=== PATIENT | female | born 1995 | race African-American/Black ===

== ENCOUNTER 2017-09-20 18:43 | Emergency (ER) | payer OTHER ==
[2017-09-20 18:49] VITALS: BP 127/71
[2017-09-20] MEDS ORDERED: IBUPROFEN 800 MG TABLET PO ONE (18:58)
[2017-09-20] MEDS ORDERED: METHOCARBAMOL 500 MG TABLET PO ONE (18:58)
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
== END 2017-09-20 19:08 | disposition home or self-care (01) ==
LOC: ER 18:43
DX: S16.1XXA Strain of muscle, fascia and tendon at neck level, initial encounter (principal); M54.2 Cervicalgia; X58.XXXA Exposure to other specified factors, initial encounter; Y93.75 Activity, martial arts
CPT/HCPCS: 99283

== ENCOUNTER 2018-04-15 23:08 | Emergency (ER) | payer OTHER ==
[2018-04-15 23:25] VITALS: BP 131/80
[2018-04-15] MEDS ORDERED: KETOROLAC TROMETHAMINE INJ/PF 30 MG/1 ML SDV IM ONE (23:37)
--- NOTE | 2018-04-15 23:41 | ER Document Report ---
ED General - General Chief Complaint: Shoulder Pain Stated Complaint: SHOULDER PAIN Time Seen by Provider: 04/15/18 23:28 Notes: Patient is a pleasant 22-year-old female presents with complaint of left shoulder pain. Says started when she woke up from sleep. She says she cannot move her left shoulder. She is very painful in the anterior superior aspect of her shoulder. Sometimes pain shoots down her arm. Never had anything like this before. No trauma. No pain before she went to bed. No history of dislocation. No weakness or numbness into the left hand. TRAVEL OUTSIDE OF THE [place] IN LAST 30 DAYS: No - Related Data Allergies/Adverse Reactions: No Known Allergies Allergy (Unverified 09/20/17 18:43) Past Medical History - Social History Smoking Status: Unknown if Ever Smoked Frequency of alcohol use: None Drug Abuse: None Family History: Reviewed & Not Pertinent Patient has suicidal ideation: No Patient has homicidal ideation: No Renal/ Medical History: Denies: Hx Peritoneal Dialysis Review of Systems - Review of Systems Notes: My Normal Review Basic REVIEW OF SYSTEMS: CONSTITUTIONAL : Denies fever, chills, or sweats. Denies recent illness. MUSCULOSKELETAL: Left shoulder pain SKIN: Denies rash or skin lesions. NEUROLOGICAL: Denies sensory or motor loss. ALL OTHER SYSTEMS REVIEWED AND NEGATIVE. Physical Exam - Vital signs Vitals: Temp Pulse Resp BP Pulse Ox 98.8 F 73 20 131/80 H 99 04/15/18 23:23 04/15/18 23:23 04/15/18 23:23 04/15/18 23:23 04/15/18 23:23 - Notes Notes: General Appearance: Well nourished, alert, cooperative, no acute distress, mild obvious discomfort. Vitals: reviewed, See vital signs table. Head: no swelling or tenderness to the head Eyes: PERRL, EOMI, Conjuctiva clear Extremities: Good strength in the left hand. Good distal sensation in all fingers of the left hand. Patient has severe pain with internal rotation of the shoulder. She has some pain with external rotation. She has a lot of pain to palpation over the chromic clavicular joint and the anterior superior aspects of the left shoulder. No pain to palpation of the posterior aspect of the shoulder. Radial and ulnar pulses are intact. Skin: warm, dry, appropriate color, no rash Neuro: speech clear, oriented x 3, normal affect, responds appropriately to questions. Course - Re-evaluation Re-evalutation: 04/16/18 00:14 Based on patient's presentation and physical exam I suspect she probably has impingement syndrome of her left shoulder. I will have her use cold packs to her shoulder as well as take ibuprofen. I informed her to avoid laying on her left shoulder and to avoid activities where she is raising her arms above her head for prolonged periods of time. I encouraged her follow-up with orthopedist doctor for reevaluation. Patient agrees with plan will be discharged home. Dictation of this chart was performed using voice recognition software; therefore, there may be some unintended grammatical errors. - Vital Signs Vital signs: Temp Pulse Resp BP Pulse Ox 98.8 F 73 20 131/80 H 99 04/15/18 23:23 04/15/18 23:23 04/15/18 23:23 04/15/18 23:23 04/15/18 23:23 Discharge - Discharge Clinical Impression: Shoulder pain, left Qualifiers: Chronicity: acute Qualified Code(s): M25.512 - Pain in left shoulder Condition: Good Disposition: HOME, SELF-CARE Additional Instructions: Based on your exam and history I suspect you have impingement syndrome of your shoulder. Please avoid exercises where you lift your arms above your head and avoid laying on your right shoulder. Please take Ibuprofen 4oomg every 6 hours for pain. Take it with food. please call Dr. Yusuf's office (orthopedic physician) for a follow up appointment this week. Please return to the ER if you have worsening pain or weakness or numbness into your hand, or if you have further concerns. Forms: Return to Work Referrals: GERARDO YUSUF MD [ACTIVE STAFF] - 04/16/18 (call office monday morning to make a follow up appointment.)
--- NOTE | 2018-04-16 00:10 | RADIOLOGY REPORT (SQ) ---
EXAM DESCRIPTION: XR SHOULDER 2 OR MORE VIEWS COMPLETED DATE/TME: 04/15/2018 23:37 CLINICAL HISTORY: 22 years, Female, left shoulder pain Findings: Bony alignment is anatomic. No fracture or dislocation. Acromioclavicular joint is intact. Soft tissues are unremarkable. IMPRESSION: No fracture.
== END 2018-04-16 01:06 | disposition home or self-care (01) ==
LOC: ER 23:08
DX: M25.512 Pain in left shoulder (principal)
CPT/HCPCS: 99283; 96372; 73030; J1885

== ENCOUNTER 2018-06-11 01:45 | Emergency (ER) | payer OTHER ==
--- NOTE | 2018-06-11 03:30 | ER Document Report ---
ED GI/ - General Chief Complaint: Vaginal Itching Stated Complaint: VAGINAL PROBLEMS Time Seen by Provider: 06/11/18 03:21 [facility] - Follow up as needed YOAN BROOKS [Primary Care Provider] - Follow up as needed Notes: Patient is a 23-year-old female that comes to the emergency department for chief complaint of vision, itching, and intermittent discomfort in the lower abdomen/pelvic area. She denies noticing a discharge, she is not currently bleeding. She denies recent antibiotics. She denies fever or chills, nausea or vomiting. She denies flank pain. She is sexually active with her significant other. She states she does get frequent yeast infections. TRAVEL OUTSIDE OF THE [place] IN LAST 30 DAYS: No - Related Data Allergies/Adverse Reactions: No Known Allergies Allergy (Unverified 09/20/17 18:43) Past Medical History - General Information source: Patient - Social History Smoking Status: Never Smoker Frequency of alcohol use: None Drug Abuse: None Lives with: Family Family History: Reviewed & Not Pertinent - Medical History Medical History: Negative Renal/ Medical History: Denies: Hx Peritoneal Dialysis Surgical Hx: Negative - Immunizations Immunizations up to date: Yes Hx Diphtheria, Pertussis, Tetanus Vaccination: Yes Review of Systems - Review of Systems Constitutional: No symptoms reported EENT: No symptoms reported Cardiovascular: No symptoms reported Respiratory: No symptoms reported Gastrointestinal: See HPI Genitourinary: See HPI Female Genitourinary: See HPI Musculoskeletal: No symptoms reported Skin: No symptoms reported Hematologic/Lymphatic: No symptoms reported Neurological/Psychological: No symptoms reported Physical Exam - Vital signs Vitals: Temp Pulse Resp BP Pulse Ox 98.6 F 79 18 126/70 H 99 06/11/18 02:14 06/11/18 02:14 06/11/18 02:14 06/11/18 02:14 06/11/18 02:14 - Notes Notes: GENERAL: Alert, interacts well. No acute distress. HEAD: Normocephalic, atraumatic. EYES: Pupils equal, round, and reactive to light. Extraocular movements intact. ENT: Oral mucosa moist, tongue midline. Oropharynx unremarkable. Airway patent. Nares patent, no nasal septal hematoma, TM's intact. NECK: Full range of motion. Supple. Trachea midline. LUNGS: Clear to auscultation bilaterally, no wheezes, rales, or rhonchi. No respiratory distress. HEART: Regular rate and rhythm. No murmur ABDOMEN: Soft, non-tender. Non-distended. Bowel sounds present in all 4 quadrants. GENITOURINARY: No concerning external findings. There is moderately large amount of whitish discharge consistent with bacterial vaginosis on physical exam. No cervical motion tenderness. Unremarkable examination otherwise. Exam performed with [facility] at bedside. EXTREMITIES: Moves all 4 extremities spontaneously. No edema, normal radial and dorsalis pedis pulses bilaterally. No cyanosis. BACK: no cervical, thoracic, lumbar midline tenderness. No saddle anesthesia, normal distal neurovascular exam. NEUROLOGICAL: Alert and oriented x3. Normal speech. [cranial nerves II through XII grossly intact]. PSYCH: Normal affect, normal mood. SKIN: Warm, dry, normal turgor. No rashes or lesions noted. Course - Re-evaluation Re-evalutation: Physical examination does indicate bacterial vaginosis. Nontender abdomen, no cervical motion tenderness, unremarkable vital signs, well-appearing patient otherwise. 3+ bacteria on wet mount, otherwise unremarkable. Discussed with patient, decision made to treat with Flagyl, discussed [facility] follow-up because she states she has had bacterial vaginosis frequently. Discussed return precautions. Patient states understanding and agreement. - Vital Signs Vital signs: Temp Pulse Resp BP Pulse Ox 97.5 F 80 17 117/68 100 06/11/18 05:19 06/11/18 05:19 06/11/18 05:19 06/11/18 05:19 06/11/18 05:19 - Laboratory Laboratory results interpreted by me: 06/11/18 04:00 Urine Urobilinogen 2.0 H Discharge - Discharge Clinical Impression: Vaginal irritation, Vaginal discharge Condition: Stable Disposition: HOME, SELF-CARE Additional Instructions: Your evaluation shows bacterial vaginosis but no other abnormalities at this time. Take Flagyl as prescribed, consider following up with [facility] for ad ditional management. See referral. Return if you worsen including abdominal pain, fever, nausea, vomiting, or any other concerning or worsening symptoms. Prescriptions: Metronidazole [Flagyl 500 mg Tablet] 500 mg PO BID #14 tablet Referrals: LOCAL,NO [Primary Care Provider] - Follow up as needed [facility] [Provider Group] - Follow up as needed
[2018-06-11 04:27] LABS: APPEARANCE,URINE CLOUDY; BILIRUBIN,URINE NEGATIVE (NEGATIVE); COLOR,URINE YELLOW; GLUCOSE, URINE NEGATIVE (NEGATIVE); KETONES,URINE NEGATIVE (NEGATIVE); LEUKOCYTE ESTERASE,URINE NEGATIVE (NEGATIVE); NITRITE,URINE NEGATIVE (NEGATIVE); PROTEIN,URINE NEGATIVE (NEGATIVE); URINE SPECIFIC GRAVITY 1.026
[2018-06-11 04:43] LABS: BACTERIA (WET MOUNT) 3+ BACTERIA SEEN; EPITHELIALS (WET MOUNT) 3+ EPITHELIALS SEEN; RBCS (WET MOUNT) FEW RBCS SEEN; T.VAGINALIS (WET MOUNT) NO TRICHOMONAS SEEN; WBCS (WET MOUNT) FEW WBCS SEEN; YEAST (WET MOUNT) NO YEAST SEEN
[2018-06-11] MEDS ORDERED: METRONIDAZOLE 500 MG TABLET PO ONE (05:08)
[2018-06-11 05:24] VITALS: BP 117/68
[2018-06-11 06:12] LABS: CHLAM PCR NOT DETECTED (NOT DETECT); GON PCR NOT DETECTED (NOT DETECT)
== END 2018-06-11 05:24 | disposition home or self-care (01) ==
LOC: ER 01:45
DX: L29.2 Pruritus vulvae (principal); N76.0 Acute vaginitis; R10.2 Pelvic and perineal pain
CPT/HCPCS: 81001; 81025; 87210; 87491; 87591; 99283